=== PATIENT | female | born 1940 | race Caucasian/White ===

== ENCOUNTER 2017-03-30 06:41 | Emergency (ER) | payer MEDICARE, BC ==
[~2017-03-30] VITALS: Wt 84.1 kg
[~2017-03-30 06:41] MED LIST: AMLO-218 PO; ASPI-664 PO; ATOR40TA68 PO; BLOO1EAC85 MC; CEPH-443 PO; DOCU-144 PO; ENOX40DI2 SC; FER325 PO; HYDR-2059 PO; HYDR-762 PO; INSU100V27 SC; KETO5DRO79 BOTH EYES; LEVO75TA84 PO; METO-429 PO; OXYC-284 PO; PRD1OP5 BOTH EYES; RANI75TA13 PO; SERT100T PO; TEMA15CA6 PO; TYL650R PR
[2017-03-30 06:46] VITALS: Wt 84.1 kg
[2017-03-30] MEDS ORDERED: SOD CHLORIDE 0.9% 500 ML IV STA (07:00)
[2017-03-30] MEDS ORDERED: ASPIRIN 300 MG SUPP PR STA (07:00)
[2017-03-30] MEDS ORDERED: ALTEPLASE 100 MG INJ IV* ONE (07:00)
[2017-03-30] MEDS ORDERED: ALTEPLASE (tPA) 1 MG/ML BOLUS SYG IV* ONE (07:00)
--- NOTE | 2017-03-30 07:11 | ERD ---
ER Documentation Chief Complaint Chief Complaint r. sided weakness, last known well time last night HPI 76-year-old woman brought in by EMS for right facia, right upper, and right lower extremity paralysis beginning this morning when she woke up. Symptoms are noticed by her family members. Family members told EMS that last night she had no motor deficits or facial asymmetry. Upon EMS arrival her blood sugar was checked and was normal. Patient has had no recent fevers or chills, no vomiting, no loss of bowel or bladder control, no seizures. Patient has had no previous similar symptoms. Patient was transported here by EMS without further complications ROS All systems reviewed and are negative except as per history of present illness. Medications Home Meds Active Scripts Docusate Sodium* (Colace*) 100 Mg Capsule, 100 MG PO TID, #30 CAP Prov:TARA CAMERON MD 10/23/15 Hydrocodone Bit-Acetaminophen* ([place]*) 10-325 Mg Tablet, 1 TAB PO Q6 Y for PAIN , #7 TAB Prov:TARA CAMERON MD 10/23/15 Ferrous Sulfate* (Ferrous Sulfate*) 325 Mg Tabec, 325 MG PO DAILY for 30 Days, TAB Prov:CATHERINE KERR NP 05/22/15 Aspirin* (Aspirin* EC) 81 Mg Tabec, 81 MG PO DAILY for 30 Days Prov:CATHERINE KERR V. [employer] 05/22/15 Acetaminophen* (Acephen*) 650 Mg Supp, 650 MG IL Q6H Y for PAIN LEVEL 1-3 OR FEVER for 30 Days, SUPP Prov:CATHERINE KERR V[employer] 05/22/15 Atorvastatin* (Atorvastatin*) 40 Mg Tablet, 40 MG PO HS for 30 Days, TAB Prov:SIRENA WALLACE MD 01/17/15 Reported Medications Metoprolol Tartrate* (Lopressor*) 25 Mg Tab, 25 MG PO BID, #180 03/30/17 Lisinopril* (Lisinopril*) 20 Mg Tablet, 20 MG PO DAILY, #90 03/30/17 Insulin Lisp Protam/Lisp Human* (Humalog Mix (75/25)*) 100 Units/Ml Susp, 60 SC AC DINNER, EA 05/19/15 Insulin Lisp Protam/Lisp Human* (Humalog Mix (75/25)*) 100 Units/Ml Susp, 60 SC AC BREAKFAST, EA 05/19/15 Ketorolac Tromethamine Oph (Ketorolac Tromethamine Oph) 0.4%-5 Ml Opht Drops, 1 DROP BOTH EYES QID, EA 05/19/15 Prednisolone Acetate* (Pred Forte*) 5 Ml Susp, 1 DROP BOTH EYES QID, EA 05/19/15 Oxycodone Hcl-Acetaminophen* (Percocet*) 10-325 Mg Tablet, 1 TAB PO Q6 Y for PAIN, TAB 05/19/15 Temazepam* (Restoril*) 15 Mg Capsule, 15 MG PO HS Y for INSOMNIA, CAP 05/19/15 Ranitidine Hcl* (Zantac*) 75 Mg Tablet, 75 MG PO BID, TAB 12/18/14 Sertraline Hcl* (Zoloft*) 100 Mg Tablet, 100 MG PO DAILY, TAB 01/07/14 Metoprolol Tartrate* (Lopressor*) 50 Mg Tablet, 50 MG PO BID, TAB 01/07/14 Levothyroxine Sodium* (Synthroid*) 75 Mcg Tablet, 75 MCG PO DAILY, TAB 01/07/14 Amlodipine Besylate* (Norvasc*) 10 Mg Tablet, 10 MG PO DAILY, TAB 11/20/13 Discontinued Scripts Cephalexin* (Keflex*) 500 Mg Capsule, 500 MG PO QID for 5 Days, CAP Prov:GUI JORGE MD 09/15/15 Enoxaparin Sodium* (Enoxaparin Sodium*) 40 Mg/0.4 Ml Soln, 40 MG SC DAILY for 30 Days Prov:CATHERINE KERR NP 05/22/15 Hydrocodone Bit-Acetaminophen* (Hydrocodone-APAP*) 10-325 Tablet, 1 TAB PO Q4H Y for PAIN for 14 Days, TAB Prov:CATHERINE KERR NP 05/21/15 Blood-Glucose Meter (Blood Glucose Meter) 1 Pkt Each, 1 PKT , #1 Prov:SIRENA WALLACE MD 01/17/15 Allergies Allergies: Coded Allergies: penicillin (Verified Allergy, Unknown, 03/30/17) PMhx/Soc Diabetes mellitus, CAD status post PCI with stent placement, previous AR, hypertension, hypothyroidism, depression, anxiety, chronic pain syndrome, osteoporosis, GERD History of Surgery: Yes (s/p stent for AR) Anesthesia Reaction: No Hx Neurological Disorder: No Hx Respiratory Disorders: No Hx Cardiac Disorders: Yes (HTN, CHF) Hx Psychiatric Problems: No Hx Miscellaneous Medical Probl: Yes (AR, DM2, HTN, dyslipidemia, hypthyroidism , anxiety d/o, OA, LBP, falls) Hx Alcohol Use: Yes Hx Substance Use: No Hx Tobacco Use: No FmHx Family History: No diabetes Physical Exam Vitals Vital Signs Date Time Temp Pulse Resp B/P Pulse Ox O2 Delivery O2 Flow Rate FiO2 03/30/17 08:52 72 22 162/91 99 Nasal Cannula 2.0 03/30/17 08:25 78 20 157/94 96 Room Air 03/30/17 06:46 98.0 84 20 153/80 98 Physical Exam GENERAL: Well-developed, well-nourished, well-hydrated, in no apparent distress , looks nontoxic in appearance HEENT: Moist mucous membranes, pink conjunctiva, no cervical spine tenderness or step-off deformities, no goiter, no jaundice or icterus, extraocular movements intact without pain. No submandibular induration, and no pharyngeal erythema NEURO: Alert and oriented 1, right facial paralysis and paralysis to the right upper and lower extremity, patient is able to follow commands and has expressive dysphasia CARDIAC: Regular rate and rhythm, no murmurs rubs or gallops LUNGS: Clear bilaterally no wheezing crackles or stridor ABDOMEN: Soft nontender, no guarding, no rigidity, no rebound, no psoas sign no obturator sign. Normoactive bowel sounds SKIN: Warm and dry to touch, no abrasions, contusions, or hematomas, no lacerations, no ecchymosis, no target lesions, and without ulcers EXTREMITIES: No clubbing cyanosis or edema, calves are bilaterally symmetrical, no Homans sign, no popliteal cord sign. Distal pulses equal and bilateral PSYCH: Normal affect without agitation or irritability Result Diagram: 03/30/17 0716 03/30/17 0716 Results 24 hrs Laboratory Tests Test 03/30/17 07:16 03/30/17 08:40 White Blood Count 5.710^3/ul Red Blood Count 4.4510^6/ul Hemoglobin 11.3g/dl Hematocrit 33.0% Mean Corpuscular Volume 74.2fl Mean Corpuscular Hemoglobin 25.4pg Mean Corpuscular Hemoglobin Concent 34.2g/dl Red Cell Distribution Width 14.0% Platelet Count 30430^3/UL Mean Platelet Volume 9.6fl Neutrophils % 59.4% Lymphocytes % 30.4% Monocytes % 5.5% Eosinophils % 4.1% Basophils % 0.2% Nucleated Red Blood Cells % 0.0/100WBC Neutrophils # 3.410^3/ul Lymphocytes # 1.710^3/ul Monocytes # 0.310^3/ul Eosinophils # 0.210^3/ul Basophils # 0.010^3/ul Nucleated Red Blood Cells # 0.010^3/ul Prothrombin Time 14.2Sec Prothrombin Time Ratio 1.1 INR International Normalized Ratio 1.09 Activated Partial Thromboplast Time 28.4Sec Sodium Level 137mmol/L Potassium Level 3.7mmol/L Chloride Level 96mmol/L Carbon Dioxide Level 29mmol/L Anion Gap 16 Blood Urea Nitrogen 20mg/dl Creatinine 0.91mg/dl Glucose Level 392mg/dl Calcium Level 8.9mg/dl Total Bilirubin 0.5mg/dl Direct Bilirubin 0.00mg/dl Indirect Bilirubin 0.5mg/dl Aspartate Amino Transf (AST/SGOT) 18IU/L Alanine Aminotransferase (ALT/SGPT) 26IU/L Alkaline Phosphatase 145IU/L Troponin I 0.015ng/ml Total Protein 7.9g/dl Albumin 3.8g/dl Globulin 4.10g/dl Albumin/Globulin Ratio 0.92 Urine Color STRAW Urine Clarity CLEAR Urine pH 6.0 Urine Specific [place] 1.012 Urine Ketones NEGATIVEmg/dL Urine Nitrite NEGATIVEmg/dL Urine Bilirubin NEGATIVEmg/dL Urine Urobilinogen NEGATIVEmg/dL Urine Leukocyte Esterase NEGATIVELeu/ul Urine Microscopic RBC 1/HPF Urine Microscopic WBC 0/HPF Urine Hemoglobin NEGATIVEmg/dL Urine Glucose 3+mg/dL Urine Total Protein 1+mg/dl Current Medications Medications (Trade) Dose Ordered Sig/Shyam Route PRN Reason Start Time Stop Time Status Last Admin Dose Admin Sodium Chloride (NS) 500 ml @ 500 mls/hr Q1H STAT IV 03/30/17 07:00 03/30/17 07:59 DC 03/30/17 08:15 Aspirin (Aspirin) 300 mg ONCE STAT IL 03/30/17 07:00 03/30/17 07:03 DC 03/30/17 08:15 Alteplase, Recombinant (Activase) 7.6 mg BOLUS OVER 1 MIN ONCE IV* 03/30/17 07:00 03/30/17 08:30 DC Alteplase, Recombinant (Activase) 68.1 mg ISCHEMIC STROKE ONCE IV* 03/30/17 07:00 03/30/17 08:30 DC IV Flush 10 ml 10 ml STK-MED ONCE .ROUTE 03/30/17 07:50 03/30/17 07:51 DC 03/30/17 08:15 Sodium Chloride (NS) 100 ml @ ud STK-MED ONCE .ROUTE 03/30/17 07:50 03/30/17 07:51 DC 03/30/17 08:15 Iodixanol (Visipaque Locm) 100 ml STK-MED ONCE .ROUTE 03/30/17 07:50 03/30/17 07:51 DC 03/30/17 08:19 Procedures/MDM IV line was established patient was placed on equipment monitor phototypesetting rhythm strip revealed a sinus rhythm at about 80 bpm with upright P and T waves. Patient was afebrile Code stroke was called immediately after physical examination. CT scan of the brain was performed that was negative for acute bleed mass or shift. Please refer to radiologist dictation for full report. CT angiogram of the neck and brain were performed there was right carotid bulb stenosis but no intracranial occlusion noted. Please refer to radiologist dictation for full report. I administered aspirin 300 mg per rectum for neuro protective measures. Tele-neurologist saw and evaluated the patient, NIH stroke scale score was just above 15 but he recommended against TPA due to time of onset. Recommendation was made to transfer to higher level of care facility for possible endoscopic clot retrieval therapy. CBC was normal, electrolytes unremarkable, liver function tests normal, troponin negative. Urine analysis was negative for infection. EKG performed, read by me: 77 bpm, normal sinus rhythm, normal axis, no acute ST segment changes, narrow QRS complex, with good R-wave progression in precordial leads. Neuro-critical Care: Time: 45 minutes, this was time separate from other billable procedures. Treatments/Evaluations: Close monitoring and treatment of unstable vital signs, cardiorespiratory, and neurologic status, while maintaining tight balance of fluid, respiratory, and cardiac interventions. Patient's blood pressure was initially very elevated although it did improve while here, no thorough further antihypertensive therapy to administered here as permissive hypertension may improve her outcome. Patient was transferred to [facility] in [place]. Departure Diagnosis: Primary Impression: Stroke CVA mechanism: unspecified Qualified Code: I63.9 - Cerebrovascular accident (CVA), unspecified mechanism Additional Impressions: Hypertensive emergency Facial paralysis on right side Condition: Serious KAMINI ARIZMENDI MD Mar 30, 2017 07:11
[2017-03-30 07:22] LABS: BASOPHILS % 0.2 % (0.0-2.0); EOSINOPHILS # 0.2 10^3/ul (0.0-0.5); EOSINOPHILS % 4.1 % (0.0-7.0); HEMOGLOBIN 11.3 g/dl (12.0-16.0); LYMPHOCYTES # 1.7 10^3/ul (0.8-2.9); LYMPHOCYTES % 30.4 % (15.0-51.0); MEAN CORPUSCULAR HEMOGLOBIN 25.4 pg (29.0-33.0); MEAN CORPUSCULAR HGB CONC 34.2 g/dl (32.0-37.0); MEAN CORPUSCULAR VOLUME 74.2 fl (82.0-101.0); MEAN PLATELET VOLUME 9.6 fl (7.4-10.4); MONOCYTE # 0.3 10^3/ul (0.3-0.9); MONOCYTES % 5.5 % (0.0-11.0); NEUTROPHIL # 3.4 10^3/ul (1.6-7.5); NEUTROPHILS % 59.4 % (39.0-77.0); PLATELET COUNT 149 10^3/UL (140-415); RED BLOOD COUNT 4.45 10^6/ul (4.20-5.40); WHITE BLOOD COUNT 5.7 10^3/ul (4.8-10.8)
--- NOTE | 2017-03-30 07:31 | RADRPT ---
PROCEDURE: CT Brain without contrast. CLINICAL INDICATION: Right facial droop and right-sided weakness TECHNIQUE: Axial images from the skull base through the vertex without IV contrast. Multiplanar r eformatted images were made. Images were reviewed on a PACS workstation. The CTDIvol is 44.68 mGy and the DLP is 810.25 mGycm. One or more of the following dose reduction techniques were used: auto mated exposure control, adjustment of the mA and/or kV according to patient size, or use of iterativ e reconstruction technique. DICOM images are available. COMPARISON: 09/15/2015 FINDINGS: There is atrophy and probable chronic microvascular ischemic change. There is no evidence for acute territorial infarction or intracranial hemorrhage. No mass or midline shift is seen. No intra or extra-axial fluid collection is seen. Intracranial vascular calcification is seen. There is mucoper iosteal thickening of the right greater than left maxillary sinuses and also the ethmoid and sphenoi d sinuses... .. IMPRESSION: Atrophy and chronic microvascular ischemic changes. No definite acute abnormality. . If there is [facility] clinical suspicion for acute stroke, MRI would be suggested.. Results were called to the patient's nurse, Amira, at 03/30/2017 7:19:51 AM Critical results: Stroke (negative CT) RPTAT: HLBE Physician Melani Date Time Electronically viewed and signed by Physician Melani on 03/30/2017 07:30 LE/
[2017-03-30 07:39] LABS: INR 1.09; PROTIME 14.2 Sec (11.9-14.9); PT RATIO 1.1
[2017-03-30 07:40] LABS: PARTIAL THROMBOPLASTIN TIME 28.4 Sec (25.0-35.0)
--- NOTE | 2017-03-30 07:41 | RADRPT ---
PROCEDURE: XR Chest. CLINICAL INDICATION: Dyspnea and chest pain TECHNIQUE: AP Portable chest. COMPARISON: 10/23/2015 chest x-ray FINDINGS: The soft tissues and bones are remarkable for thoracic spondylosis and acromioclavicular osteoarthro omari.. Mild bilateral interstitial edema with bibasilar discoid atelectasis or early infiltrates ar e noted. No evidence for pleural effusions are present. Mild vascular calcifications are present of the thoracic aorta with a normal size heart. No pneumothorax is present. IMPRESSION: 1. Mild bilateral interstitial edema and bibasilar discoid atelectasis or early infiltrates. 2. Mild atherosclerotic vascular disease 3. Thoracic spondylosis and acromioclavicular osteoarthropathy RPTAT: HDC .Mouna Blackmon MD, Date Time Electronically viewed and signed by .Mouna Blackmon MD, on 03/30/2017 07:40 .C/
[2017-03-30 07:42] LABS: ALBUMIN 3.8 g/dl (3.3-4.9); ALBUMIN/GLOBULIN RATIO 0.92; BILIRUBIN,INDIRECT 0.5 mg/dl (0-1.1); BILIRUBIN,TOTAL 0.5 mg/dl (0.2-1.3); CALCIUM 8.9 mg/dl (8.4-10.2); CREATININE 0.91 mg/dl (0.44-1.00); POTASSIUM 3.7 mmol/L (3.5-5.1); TOTAL PROTEIN 7.9 g/dl (6.1-8.1)
[2017-03-30] MEDS ORDERED: IODIXANOL LOCM 100 ML BTL ONE (07:50)
[2017-03-30] MEDS ORDERED: SOD CHLORIDE 0.9% 100 ML ONE (07:50)
[2017-03-30 07:53] LABS: TROPONIN-I 0.015 ng/ml (0.00-0.12)
--- NOTE | 2017-03-30 08:20 | STROKE ---
Date/Time of Note Date/Time of Note DATE: 03/30/17 TIME: 08:18 Patient Information General Patient location: emergency Arrival Date Age 76 Gender female Weight 84.09 kg bib ems on [facility] Vital Signs Vital Signs Vital Signs Date Time Temp Pulse Resp B/P Pulse Ox O2 Delivery O2 Flow Rate FiO2 03/30/17 06:46 98.0 84 20 153/80 98 Patient History Current Medications Allergies: Coded Allergies: penicillin (Verified Allergy, Unknown, 09/15/15) Labs Hematology Labs Hematology Test 03/30/17 07:16 White Blood Count 5.710^3/ul (4.8-10.8) Red Blood Count 4.4510^6/ul (4.20-5.40) Hemoglobin 11.3g/dl (12.0-16.0) Hematocrit 33.0% (37.0-47.0) Mean Corpuscular Volume 74.2fl (82.0-101.0) Mean Corpuscular Hemoglobin 25.4pg (29.0-33.0) Mean Corpuscular Hemoglobin Concent 34.2g/dl (32.0-37.0) Red Cell Distribution Width 14.0% (11.5-14.5) Platelet Count 65312^3/UL (140-415) Mean Platelet Volume 9.6fl (7.4-10.4) Neutrophils % 59.4% (39.0-77.0) Lymphocytes % 30.4% (15.0-51.0) Monocytes % 5.5% (0.0-11.0) Eosinophils % 4.1% (0.0-7.0) Basophils % 0.2% (0.0-2.0) Nucleated Red Blood Cells % 0.0/100WBC (0.0-0.0) Neutrophils # 3.410^3/ul (1.6-7.5) Lymphocytes # 1.710^3/ul (0.8-2.9) Monocytes # 0.310^3/ul (0.3-0.9) Eosinophils # 0.210^3/ul (0.0-0.5) Basophils # 0.010^3/ul (0.0-0.1) Nucleated Red Blood Cells # 0.010^3/ul (0.0-0.0) Chemistry Labs Chemistry Test 03/30/17 07:16 Sodium Level 137mmol/L (135-144) Potassium Level 3.7mmol/L (3.5-5.1) Chloride Level 96mmol/L (97-110) Carbon Dioxide Level 29mmol/L (21-31) Anion Gap 16 (8-16) Blood Urea Nitrogen 20mg/dl (7-20) Creatinine 0.91mg/dl (0.44-1.00) Glucose Level 392mg/dl (70-220) Calcium Level 8.9mg/dl (8.4-10.2) Total Bilirubin 0.5mg/dl (0.2-1.3) Direct Bilirubin 0.00mg/dl (0.00-0.20) Indirect Bilirubin 0.5mg/dl (0-1.1) Aspartate Amino Transf (AST/SGOT) 18IU/L (15-46) Alanine Aminotransferase (ALT/SGPT) 26IU/L (13-69) Alkaline Phosphatase 145IU/L (42-121) Troponin I 0.015ng/ml (0.00-0.12) Total Protein 7.9g/dl (6.1-8.1) Albumin 3.8g/dl (3.3-4.9) Globulin 4.10g/dl (1.3-3.2) Albumin/Globulin Ratio 0.92 Coagulation Labs: Coagulation Test 03/30/17 07:16 Prothrombin Time 14.2Sec (11.9-14.9) Prothrombin Time Ratio 1.1 INR International Normalized Ratio 1.09 Activated Partial Thromboplast Time 28.4Sec (25.0-35.0) History & Physical History of Present Illness 76 W w. HTN, DM, CAD BIBEMS from home for wake-up stroke with right hemiplegia. LKW was on 03/29/17 at 22:00. NCHCT and CTA Head/Neck ordered. NIH Stroke Scale NIH Stroke Scale Total Score: 16 Date/Time Recorded DATE: 03/30/17 TIME: 08:18 Submitted By Sarmad Vazquez t-PA Imaging Review Imaging Reviewed: Yes Date/Time Imaging Reviewed DATE: 03/30/17 TIME: 08:18 t-PA Administration Recommendation: No Weight 84.09 kg bib ems on [facility] Recommedation submitted by Sarmad Vazquez Reason t-PA not Recommended Outside time window Recommendations Recommendation 76 YO F with wake-up stroke with right hemiplegia, L gaze preference. Not an IV tPA candidate as LKW > 4.5 hrs. VAN criteria positive for L gaze and possible component of aphasia. There is concern for L MCA LVO. - Agree with STAT CTA Head/Neck and CT-Perfusion to guide candidacy for mechanical thrombectomy - Further acute care will be guided by mechanical thrombectomy plan - [facility] - Permissive HTN for now pending reperfusion plan SARMAD VAZQUEZ MD Mar 30, 2017 08:20
[2017-03-30] MEDS ORDERED: LISI20TA11 PO (08:29)
[2017-03-30] MEDS ORDERED: METO-448 PO (08:29)
--- NOTE | 2017-03-30 08:49 | RADRPT ---
PROCEDURE: CTA head and neck CLINICAL INDICATION: Code stroke TECHNIQUE: The study was performed utilizing a multidetector CT scanner. Direct thin section minerva aleisha 0.625 mm axial sections were obtained through the head and neck after the uneventful administrat ion of 100 ml of Isovue 370 nonionic intravenous contrast material. Coronal and sagittal reformatte d images. NoMaximal intensity projection reformations were obtained. 3-D images were made. The imag es were reviewed on a PACS workstation. The total 65.61 mGy and the 67 49.08 mGy-cm. One or more of the following dose reduction techniques were utilized: Automated exposure control, adjustment of th e mA and/or kV according to patient size, use of iterative reconstruction technique. Carotid stenosi s is calculated in accordance with NASCET criteria guidelines with direct measurements of the narrow est segment of stenosis compared with distal luminal diameter of the normal distal extracranial inte rnal carotid artery. DICOM images are available. COMPARISON: No prior studies are available for comparison. FINDINGS: CTA NECK: Aortic arch: The aortic arch is normal in caliber. Atherosclerotic calcification of the aortic arch. Normal appea luz of the origin of the great vessels. Common carotid arteries: The common carotid arteries are patent and normal in caliber bilaterally. Tortuosity of the proximal left common carotid artery. Scattered areas of mural plaque along the distal left common carotid ar regino. Internal carotid arteries: OBDULIA/ECA: Densely calcified circumferential fibrocalcific plaque along the length of the internal carotid aiadn ry bulb most pronounced at the distal bulb resulting in approximately 62% luminal stenosis by NASCET criteria. No gross evidence of plaque ulceration. The distal internal carotid artery is patent and normal in caliber. No evidence of hemodynamically significant stenosis. External carotid artery a nd its branches are normal patent and normal in caliber LICA/ECA : Marginal mural fibrocalcific plaque along the length of the internal carotid artery bulb and bifurca tion with maximal luminal stenosis of 33% by NASCET criteria at the level of the mid internal caroti d artery bulb.. The distal internal carotid artery is patent and normal in caliber. No evidence of hemodynamically significant stenosis. External carotid artery and its branches are normal patent a nd normal in caliber Vertebral arteries: The vertebral arteries are patent and normal in caliber. Dominant left vertebral artery patent and n ormal in caliber. CTA BRAIN: Dense calcification of the cavernous carotid arteries. No hemodynamically significant stenosis on th e right. Approximately 50% short segment stenosis on the left. The vessels of the anterior posterior circulation are patent and demonstrate normal course and calib er without irregularity, focal stenosis or occlusion. The anterior posterior communicating arteries are intact. The basilar artery is patent and normal in caliber. Bilateral origin posterior cerebral arteries compatible with normal variant anatomy. Posterior cerebral arteries are patent and normal in caliber. The vertebral arteries are patent and normal in caliber with dominant left vertebral artery. Scatter ed atherosclerotic calcified plaque in the proximal V4 segment of the left. No aneurysm or vascular malformation is identified. The dural venous sinuses , cortical, and intrace rebral veins are patent and normal in caliber. IMPRESSION: 1. Marked fibrocalcific plaque at the origin and length of the internal carotid artery bulb bilater ally. This room results in maximum luminal stenosis on the right of 62% and 33% maximal stenosis on the left by NASCET criteria. The remaining neck vessels are patent and normal in caliber. 2. Unremarkable CT angiogram of the intracranial vessels. 3. Dominant left vertebral artery. 4. Atherosclerotic calcification of the cavernous carotid arteries with greatest luminal stenosis o f approximately 50% on the left. Critical results were discussed with Damián Macdonald 03/30/2017 8:46:49 AM . RPTAT:AAJJ Physician Jude Date Time Electronically viewed and signed by Physician Jude on 03/30/2017 08:48 DANDRE/
[2017-03-30 08:52] VITALS: BP 162/91; PULSE 72; RESP 22
[2017-03-30 09:11] LABS: ADD UMIC YES; UR ASCORBIC ACID NEGATIVE (NEGATIVE); UR BILIRUBIN (Dip) NEGATIVE (NEGATIVE); UR BLOOD (Dip) NEGATIVE (NEGATIVE); UR CLARITY CLEAR (CLEAR); UR COLOR STRAW (YELLOW); UR GLUCOSE (Dip) 3+ mg/dL (NEGATIVE); UR KETONES (Dip) NEGATIVE (NEGATIVE); UR LEUKOCYTE ESTERASE (Dip) NEGATIVE Leu/ul (NEGATIVE); UR NITRITE (Dip) NEGATIVE (NEGATIVE); UR RBC 1 /HPF (0-5); UR SPECIFIC GRAVITY (Dip) 1.012 (1.003-1.030); UR TOTAL PROTEIN (Dip) 1+ mg/dl (NEGATIVE); UR UROBILINOGEN (Dip) NEGATIVE (NEGATIVE)
[2017-03-30 09:45] LABS: BARBITURATES Negative (NEGATIVE); BENZODIAZEPINES Negative (NEGATIVE); CANNABINOIDS Negative (NEGATIVE); COCAINE Negative (NEGATIVE); OPIATES Negative (NEGATIVE)
--- NOTE | 2017-03-31 02:02 | RADRPT ---
PROCEDURE: CTA head and neck CLINICAL INDICATION: Code stroke TECHNIQUE: The study was performed utilizing a multidetector CT scanner. Direct thin section helical 0.625 mm axial sections were obtained through the head and neck after the uneventful administration of 100 ml of Isovue 370 nonionic intravenous contrast material. Coronal and sagittal reformatted im ages. NoMaximal intensity projection reformations were obtained. 3-D images were made. The images we re reviewed on a PACS workstation. The total 65.61 mGy and the 67 49.08 mGy-cm. One or more of the f ollowing dose reduction techniques were utilized: Automated exposure control, adjustment of the mA a nd/or kV according to patient size, use of iterative reconstruction technique. Carotid stenosis is c alculated in accordance with NASCET criteria guidelines with direct measurements of the narrowest se gment of stenosis compared with distal luminal diameter of the normal distal extracranial internal c arotid artery. DICOM images are available. COMPARISON: No prior studies are available for comparison. FINDINGS: CTA NECK: Aortic arch: The aortic arch is normal in caliber. Atherosclerotic calcification of the aortic arch. Normal appea luz of the origin of the great vessels. Common carotid arteries: The common carotid arteries are patent and normal in caliber bilaterally. Tortuosity of the proximal left common carotid artery. Scattered areas of mural plaque along the distal left common carotid ar regino. Internal carotid arteries: OBDULIA/ECA: Densely calcified circumferential fibrocalcific plaque along the length of the internal carotid aidan ry bulb most pronounced at the distal bulb resulting in approximately 62% luminal stenosis by NASCET criteria. No gross evidence of plaque ulceration. The distal internal carotid artery is patent and normal in caliber. No evidence of hemodynamically significant stenosis. External carotid artery and its branches are normal patent and normal in caliber LICA/ECA : Marginal mural fibrocalcific plaque along the length of the internal carotid artery bulb and bifurca tion with maximal luminal stenosis of 33% by NASCET criteria at the level of the mid internal caroti d artery bulb.. The distal internal carotid artery is patent and normal in caliber. No evidence of h emodynamically significant stenosis. External carotid artery and its branches are normal patent and normal in caliber Vertebral arteries: The vertebral arteries are patent and normal in caliber. Dominant left vertebral artery patent and n ormal in caliber. CTA BRAIN: Dense calcification of the cavernous carotid arteries. No hemodynamically significant stenosis on th e right. Approximately 50% short segment stenosis on the left. The vessels of the anterior posterior circulation are patent and demonstrate normal course and calib er without irregularity, focal stenosis or occlusion. The anterior posterior communicating arteries are intact. The basilar artery is patent and normal in caliber. Bilateral origin posterior cerebral arteries compatible with normal variant anatomy. Posterior cerebral arteries are patent and normal in caliber. The vertebral arteries are patent and normal in caliber with dominant left vertebral artery. Scatter ed atherosclerotic calcified plaque in the proximal V4 segment of the left. No aneurysm or vascular malformation is identified. The dural venous sinuses , cortical, and intrace rebral veins are patent and normal in caliber. IMPRESSION: 1. Marked fibrocalcific plaque at the origin and length of the internal carotid artery bulb bilatera lly. This room results in maximum luminal stenosis on the right of 62% and 33% maximal stenosis on t he left by NASCET criteria. The remaining neck vessels are patent and normal in caliber. 2. Unremarkable CT angiogram of the intracranial vessels. 3. Dominant left vertebral artery. 4. Atherosclerotic calcification of the cavernous carotid arteries with greatest luminal stenosis of approximately 50% on the left. Critical results were discussed with Damián Macdonald 03/30/2017 8:46:49 AM . RPTAT:AAJJ Signed By: Fred Valdes M.d 03/30/2017 8:48:55 AM Physician Melani Date Time Electronically viewed and signed by Peg Curtis Physician on 03/31/2017 02:02 OMA/
== END 2017-03-30 09:32 | disposition short-term general hospital (02) ==
LOC: E/R 06:41
DX: I63.9 Cerebral infarction, unspecified (principal); I16.1 Hypertensive emergency; G51.0 Bell's palsy; E11.9 Type 2 diabetes mellitus without complications; I25.10 Atherosclerotic heart disease of native coronary artery without angina pectoris; I10 Essential (primary) hypertension; E03.9 Hypothyroidism, unspecified; I50.9 Heart failure, unspecified; Z79.01 Long term (current) use of anticoagulants; Z79.82 Long term (current) use of aspirin; Z79.4 Long term (current) use of insulin
CPT/HCPCS: 36415; 51702; 70450; 70496; 70498; 71010; 80053; 80307; 81001; 83036; 84484; 85025; 85610; 85730; 93005; 99291; J7040; Q9967; J2997

== ENCOUNTER 2017-08-01 15:21 | Inpatient (IN) | END 2017-08-08 17:30 | DRG 682 ==